=== PATIENT | male | born 1990 | race Caucasian/White ===

== ENCOUNTER → 2017-04-05 | Outpatient (CLI) | payer BC, OTHER ==
[2017-04-05 16:36] LABS: DAYS OF ABSTINENCE 3; METHOD OF COLLECTION MASTURBATION; SEMEN TIME OF COLLECTION 1500; TYPE OF SPECIMEN CONTAINER STERILE CUP
[2017-04-05 16:37] LABS: SEMEN COLOR GRAY OR GRAY-WHITE (GRY/GRYWHTE); SEMEN VOLUME 2.5 ML (>1.5)
[2017-04-05 16:38] LABS: SPERM VIABILITY STAIN NOT INDICATED % (>58%)
== END | disposition home or self-care (01) ==
LOC: C.LAB 16:02
PROVIDERS: ATTEND Obstetrics & Gynecology
DX: Z31.41 Encounter for fertility testing (principal)